=== PATIENT | male | born 1965 | race Two or more races ===

== ENCOUNTER → 2024-03-13 | Outpatient (CLI) | payer SELFPAY ==
--- NOTE | 2024-03-13 | IMM_PTH ---
PATIENT: TAMIKA HARDIN LOC: [facility] U#:[id number] AGE/SX: 58/M ROOM: RE03/13/[address]: Dr. Ibrahima Quigley MD : 1965 BED: DIS: 03/13/2024 SPEC #: [id number] RECD: 03/15/24 11:35 STATUS: CATHIE REQ #: [id number] BEATA: 03/13/24 00:[address]: Ibrahima Quigley DEPT: IMMUNOHISTOCHEMISTRY RECD BY: Chris Mendosa ENTERED: 03/15/24 11:37 SP TYPE: IMMUNO OTHR DR: Dr. Ayan Adames, Tissues: B - PROSTATE RIGHT Procedures: 34BE12 (add) P40 (initial) PHYSICIAN & INSTITUTION [place] [address] SPECIMEN INFORMATION: Tissue Source: B- Prostate right mid Clinical Info: Elevated PSA Specimen Number: [id number] CPT code: 64980,26704 METHODOLOGY: Deparaffinized sections of prefer/formalin-fixed tissue or PAP/DQ stained slides are incubated with monoclonal/polyclonal antibodies/oligonucleotide probes. Localization is made via biotin free immunoperoxidase method. Appropriate controls are performed and reacted as expected. Results on target cell population are indicated in the following table: RESULTS: ANTIBODY / CLONE RESULT Block B P40 (BC28) negative 34BE12 (34BE12) negative These tests were developed and their performance characteristics determined by [facility]. They may not have been cleared or approved by the U.S. Food and Drug Administration. The FDA has determined that such clearance or approval is not necessary. The above immunohistochemical/dualISH markers are ordered and reviewed by the Pathologist. INTERPRETATION: B. Prostate, right mid, core biopsy: Adenocarcinoma. ANTONY/ 03/16/2024
--- NOTE | 2024-03-13 13:00 | PROSBIL_PTH ---
PATIENT: TAMIKA HARDIN LOC: [facility] U#:[id number] AGE/SX: 58/M ROOM: RE03/13/[address]: Dr. Ibrahima Quigley MD : 1965 BED: DIS: 03/13/2024 SPEC #: [id number] RECD: 03/14/24 10:18 STATUS: CATHIE REStacy #: [id number] BEATA: 03/13/24 13:[address]: Ibrahima Quigley DEPT: SURGICAL PATHOLOGY RECD BY: Socorro Geronimo ENTERED: 03/14/24 10:19 SP TYPE: PROST BX ALEC DR: Dr. Ayan Adames DO Tissues: A - PROSTATE RIGHT B - PROSTATE RIGHT C - PROSTATE RIGHT D - PROSTATE LEFT E - PROSTATE LEFT F - PROSTATE LEFT Procedures: PROSTATE BX HEADER OPERATION: Prostate biopsy PRE-OP DIAGNOSIS: Elevated PSA TISSUE SUBMITTED: A - Right apex, B - Right mid, C - Right base, D - Left apex, E - Left mid, F - Left base MICROSCOPIC DIAGNOSIS A. Right prostate, apex, core biopsy: Focal high-grade prostatic intraepithelial neoplasia (HGPIN). B. Right prostate, mid, core biopsy: Prostatic adenocarcinoma. [place] grade: 3+3=6 Number of cores involved: 1/2 Proportion of tissue involved: <5% Perineural invasion: Not identified. Greatest tumor length: 0.1 cm See comment. C. Right prostate, base, core biopsy: Prostatic adenocarcinoma. [place] grade: 3+3=6 Number of cores involved: 2/2 Proportion of tissue involved: 15-20% Perineural invasion: Present, focal Greatest tumor length: 0.3cm D. Left prostate, apex, core biopsy: Prostatic tissue, negative for malignancy. Focal mild chronic inflammation. E. Left prostate, mid, core biopsy: Prostatic tissue, negative for malignancy. F. Left prostate, base, core biopsy: Prostatic tissue, negative for malignancy. SJ/mr 03/15/2024 COMMENT B. Immunohistochemistry ([id number]) supports the above diagnosis. MICROSCOPIC DESCRIPTION Slides are reviewed. GROSS DESCRIPTION A - Received is one container designated prostate, right apex. The specimen consists of two elongated fragments of light boyd-white soft tissue each measuring 1.5 cm in length and 0.1 cm in diameter. The specimen is totally submitted in one cassette. B - Received is one container designated prostate, right mid. The specimen consists of two elongated fragments of light boyd-white soft tissue measuring 0.5 and 1.5 cm in length and 0.1 cm in diameter. The specimen is totally submitted in one cassette. C - Received is one container designated prostate, right base. The specimen consists of two elongated fragments of light boyd-white soft tissue measuring 0.6 and 1.6 cm in length and 0.1 cm in diameter. The specimen is totally submitted in one cassette. D - Received is one container designated prostate, left apex. The specimen consists of two elongated fragments of light boyd-white soft tissue measuring 0.5 and 0.9 cm in length and 0.1 cm in diameter. The specimen is totally submitted in one cassette. E - Received is one container designated prostate, left mid. The specimen consists of two elongated fragments of light boyd-white soft tissue measuring 1.1 and 1.5 cm in length and 0.1 cm in diameter. The specimen is totally submitted in one cassette. F - Received is one container designated prostate, left base. The specimen consists of two elongated fragments of light boyd-white soft tissue each measuring 1.5 cm in length and 0.1 cm in diameter. The specimen is totally submitted in one cassette. ANTONY/ 03/14/2024 TC:0 CPT: 18959 x6
== END | disposition home or self-care (01) ==
PROVIDERS: PCP Family Medicine; Referring Provider Urology; Visit Provider Urology
DX: R97.20 Elevated prostate specific antigen [PSA] (principal)
CPT/HCPCS: 88305; 88341; 88342; G0416

== ENCOUNTER → 2025-08-01 | Outpatient (CLI) | payer OTHER, SELFPAY ==
--- NOTE | 2025-08-01 10:34 | MRI_ITS ---
PROCEDURE: PELVIS W/WO CONTRAST, 08/01/2025 REASON FOR EXAM: ELEVATED PSA. Additional history: Per technologist report, PSA approximately 10 on unspecified date. TECHNIQUE: Multisequence multiplanar MRI pelvis was performed with and without IV contrast. IV Contrast: 17 mL Clariscan COMPARISON: None FINDINGS: Prostate size: 4.9 x 4.4 x 4.5 cm, estimated volume 50.5 mL. Per the above provided approximate PSA, approximate PSA density is 0.198 ng/mL. Transition zone: PI-RADS 2 findings. Peripheral Zone: Background changes of likely mild prostatitis (PI-RADS 2). Additional lesions as below: *Lesion 1: RIGHT mid posteromedial peripheral zone, 0.9 cm (series 12, image 18).. *T2 score: 4; circumscribed, homogeneous, moderate hypointensity, and <1.5 cm. *DWI score: 4. *DCE: Faintly positive. *Overall PI-RADS: PI-RADS 4. *Extracapsular extension:Capsular abutment without gross extracapsular extension. Neurovascular bundles: Unremarkable. Seminal vesicles: Unremarkable. Bladder: Underdistended and suboptimally evaluated, grossly unremarkable. Lymph nodes: Unremarkable. Bones: No destructive or frankly suspicious bony lesions identified on nondedicated evaluation. Other: None. MRI/Pelvis W/WO Contrast IMPRESSION: 1. 0.9 cm PI-RADS 4 lesion in the RIGHT mid posteromedial peripheral zone. Cap sular abutment without gross extracapsular extension. 2. No overt pelvic lymphadenopathy. 3. Additional description as above. Reading Location: [id number]
--- OUTSIDE RECORDS SUMMARY | 2025-08-01 11:25 | XMS RPT_ITS | CCD ---
Author Organization [employer] [facility] CliniSy[facility] Care Team Providers Care Material Reclaimer Name Role Phone Ayan Adames Primary Care Unavailable Ibrahima Quigley Referring Unavailable Ibrahima Quigley Attending Unavailable Problems Problem Classification Problem Date Documented Da te Episodic/Chronic Other screening for suspected conditions (not mental disorders or infectious disease) (1 source) Elevated prostate specific antigen [PSA]; Translations: [Elevated prostate specific antigen [PSA]] Onset: 05-02-2024 Episodic Results Test Name Value Interpretation Reference Range Facil it 34BE12 (add)on 03-13-2024 34BE12 (add) ------ Patient Age/Sex Location Account Attending Physician TAMIKA HARDIN 58/M LABSPEC [id number] Dr. Ibrahima Quigley MD Specimen: [id number] Received: 03/15/241135 Status: CATHIE Pringle Num: [id number] Spec Type: IMMUNO Subm Dr: Dr. Ibrahima Quigley MD PHYSICIAN INSTITUTION [place] [address] SPECIMEN INFORMATION: Tissue Source: B- Prostate right mid Clinical Info: Elevated PSA Specimen Number: [id number] CPT code: 47951,94077 METHODOLOGY: Deparaffinized sections of prefer/formalin-fixed tissue or PAP/DQ stained slides are incubated with monoclonal/polyclonal antibodies/oligonucleotide probes. Localization is made via biotin free immunoperoxidase method. Appropriate controls are performed and reacted as expected. Results on target cell population are indicated in the following table: RESULTS: ANTIBODY / CLONE RESULT Block B P40 (BC28) negative 34BE12 (34BE12) negative These tests were developed and their performance characteristics determined by [facility]. They may not have been cleared or approved by the U.S. Food and Drug Administration. The FDA has determined that such clearance or approval is not necessary. The above immunohistochemical/dualIS H markers are ordered and reviewed by the Pathologist. INTERPRETATION: B. Prostate, right mid, core biopsy: Adenocarcinoma. ANTONY/ 03/16/2024 Signed (signature on file) Dr. Jesus Calderon MD 03/16/24 0958 Normal [facility] Comment on above: Performed By: #### [id number]. #### [facility] [address] [place] [address], [id number] PROSTATE BXon 03-13-2024 PROSTATE BX ------ Patient Age/Sex Location Account Attending Physician TAMIKA HARDIN 58/M LABSPEC [id number] Dr. Ibrahima Quigley MD Specimen: [id number] Received: 03/14/24 Status: CATHIE Pringle Num: [id number] Spec Type: PROST BX Subm Dr: Dr. Ibrahima Quigley MD HEADER OPERATION: Prostate biopsy PRE-OP DIAGNOSIS: Elevated PSA TISSUE SUBMITTED: A - Right apex, B - Right mid, C - Right base, D - Left apex, E - Left mid, F - Left base MICROSCOPIC DIAGNOSIS A. Right prostate, apex, core biopsy: Focal high-grade prostatic intraepithelial neoplasia (HGPIN). B. Right prostate, mid, core biopsy: Prostatic adenocarcinoma. [place] grade: 3+3=6 Number of cores involved: 1/2 Proportion of tissue involved: <5% Perineural invasion: Not identified. Greatest tumor length: 0.1 cm See comment. C. Right prostate, base, core biopsy: Prostatic adenocarcinoma. [place] grade: 3+3=6 Number of cores involved: 2/2 Proportion of tissue involved: 15-20% Perineural invasion: Present, focal Greatest tumor length: 0.3cm D. Left prostate, apex, core biopsy: Prostatic tissue, negative for malignancy. Focal mild chronic inflammation. E. Left prostate, mid, core biopsy: Prostatic tissue, negative for malignancy. F. Left prostate, base, core biopsy: Prostatic tissue, negative for malignancy. SJ/mr 03/15/2024 COMMENT B. Immunohistochemistry ([id number]) supports the above diagnosis. MICROSCOPIC DESCRIPTION Slides are reviewed. Patient Age/Sex Location Account Attending Physician TAMIKA HARDIN 58/M LABSPEC [id number] Dr. Ibrahima Quigley MD GROSS DESCRIPTION A - Received is one container designated prostate, right apex. The specimen consists of two elongated fragments of light boyd-white soft tissue each measuring 1.5 cm in length and 0.1 cm in diameter. The specimen is totally submitted in one cassette. B - Received is one container designated prostate, right mid. The specimen consists of two elongated fragments of light boyd-white soft tissue measuring 0.5 and 1.5 cm in length and 0.1 cm in diameter. The specimen is totally submitted in one cassette. C - Received is one container designated prostate, right base. The specimen consists of two elongated fragments of light boyd-white soft tissue measuring 0.6 and 1.6 cm in length and 0.1 cm in diameter. The specimen is totally submitted in one cassette. D - Received is one container designated prostate, left apex. The specimen consists of two elongated fragments of light boyd-white soft tissue measuring 0.5 and 0.9 cm in length and 0.1 cm in diameter. The specimen is totally submitted in one cassette. E - Received is one container designated prostate, left mid. The specimen consists of two elongated fragments of light boyd-white soft tissue measuring 1.1 and 1.5 cm in length and 0.1 cm in diameter. The specimen is totally submitted in one cassette. F - Received is one container designated prostate, left base. The specimen consists of two elongated fragments of light boyd-white soft tissue each measuring 1.5 cm in length and 0.1 cm in diameter. The specimen is totally submitted in one cassette. Violet 03/14/2024 TC:0 CPT: 44575 x6 Patient Age/Sex Location Account Attending Physician TAMIKA HARDIN 58/M LABSPEC [id number] Dr. Ibrahima Quigley MD Signed (signature on file) Dr. Jesus Calderon MD 03/16/24 0914 Normal [facility] Comment on above: Performed By: #### PPROSB #### [facility] [address] [place], [place], [address] Encounters Encounter Date Encounter Type Care Provider Facility Start: 03-13-2024 End: 03-13-2024 ambulatory Ayan Rosangela Facility:[facility] Payers Date Payer Category Payer Self-pay Unknown [id number] Summary Purpose Family History No Family History Records Found Advance Directives No Advanced Directives Records Found Additional Source Comments (unrecognized sect ion and content) No Status Records Found INFORMATION SOURCE (unrecogn ized section and content) DATE CREATED AUTHOR 05/04/2024 [facility] FOR RECORDS PERTAINING TO PATIENTS WHO ARE OR HAVE BEEN ENROLLED IN A CHEMICAL DEPENDENCY/SUBSTANCEABUSE PROGRAM, SOME INFORMATION MAY BE OMITTED. This clinical summary was aggregated from multiple sources. Caution should be exercised in using it in the provision of clinical care. This summary normalizes information from multiple sources, and as a consequence, information in this document may materially change the coding, format and clinical context of patient data. In addition, data may be omitted in some cases. CLINICAL DECISIONS SHOULD BE BASED ON THE PRIMARY CLINICAL RECORDS. [facility] provides no warranty or guarantee of the accuracy or completeness of information in this document.
== END | disposition home or self-care (01) ==
LOC: OPMRI 10:32
PROVIDERS: PCP Nurse Practitioner Family; Referring Provider Urology; Visit Provider Urology
DX: R97.20 Elevated prostate specific antigen [PSA] (principal)
CPT/HCPCS: 72197; A9575; A4216